=== PATIENT | female | born 1970 | race Caucasian/White ===

== ENCOUNTER → 2017-05-02 | Outpatient (CLI) | payer OTHER ==
[2017-05-02 07:26] LABS: AUTOMATED NEUTROPHIL # 4.5 TH/MM3 (1.8-7.7); BASOPHIL % 0.2 % (0.0-2.0); EOSINOPHIL # 0.3 TH/MM3 (0-0.4); EOSINOPHIL % 4.2 % (0.0-4.0); HEMATOCRIT 39.1 % (35.0-46.0); HEMO FLAGS DIFF FINAL; LYMPH % 18.9 % (9.0-44.0); LYMPHOCYTE # 1.2 TH/MM3 (1.0-4.8); MEAN CELL VOLUME 84.5 FL (80.0-100.0); MEAN CORPUSCULAR HEMOGLOBIN 29.6 PG (27.0-34.0); MONO % 6.3 % (0.0-8.0); NEUT % 70.4 % (16.0-70.0); PLATELET COUNT 277 TH/MM3 (150-450); RED BLOOD COUNT 4.62 MIL/MM3 (4.00-5.30); RED CELL DISTRIBUTION WIDTH 13.8 % (11.6-17.2); WHITE BLOOD COUNT 6.4 TH/MM3 (4.0-11.0)
[2017-05-02 07:29] LABS: BACTERIA, URINE RARE /hpf; BLOOD, URINE NEG (NEG); GLUCOSE,URINE NEG (NEG); KETONE, URINE NEG (NEG); MUCUS URINE FEW /lpf (OCC); NITRITE,URINE NEG (NEG); SQUAMOUS EPITHELIAL CELL URINE 2 /hpf (0-5); URINE COLOR YELLOW (YELLW/STRAW)
[2017-05-02 07:53] LABS: ANION GAP 6 MEQ/L (5-15); AST (GOT) 13 U/L (15-37); BICARBONATE 23.7 MEQ/L (21.0-32.0); BLOOD UREA NITROGEN 14 MG/DL (7-18); CHLORIDE 108 MEQ/L (98-107); GLOMERULAR FILTRATION RATE 74 ML/MIN (>89); GLUCOSE,FASTING 98 MG/DL (74-99); POTASSIUM 4.1 MEQ/L (3.5-5.1); SODIUM (NA) 138 MEQ/L (136-145)
[2017-05-02 07:54] LABS: ALT (GPT) 27 U/L (10-53)
[2017-05-02 08:04] LABS: ALKALINE PHOSPHATASE 82 U/L (45-117); THYROXINE (T4) 9.1 MCG/DL (4.8-13.9); TOTAL BILIRUBIN ADULT 0.4 MG/DL (0.2-1.0)
== END ==
LOC: CLAB 07:01
PROVIDERS: ATTEND Family Medicine
DX: R53.83 Other fatigue (principal); G43.909 Migraine, unspecified, not intractable, without status migrainosus; Z13.29 Encounter for screening for other suspected endocrine disorder; Z13.220 Encounter for screening for lipoid disorders
CPT/HCPCS: 36415; 80053; 81001; 84436; 84443; 85025

== ENCOUNTER → 2017-07-09 | Outpatient (CLI) | payer OTHER | LOC: CLAB 07:10 | PROVIDERS: ATTEND Family Medicine | DX: E04.9 Nontoxic goiter, unspecified (principal) | CPT/HCPCS: 36415; 84436; 84443 ==

== ENCOUNTER → 2017-11-19 | Outpatient (CLI) | payer OTHER ==
[~2017-11-19] MED LIST: IMIT100T PO; LEVO25TA4 PO; PROP10TA6 PO
[2017-11-19 12:04] LABS: AUTOMATED NEUTROPHIL # 5.5 TH/MM3 (1.8-7.7); BASOPHIL % 0.2 % (0.0-2.0); EOSINOPHIL # 0.2 TH/MM3 (0-0.4); EOSINOPHIL % 2.9 % (0.0-4.0); HEMATOCRIT 38.8 % (35.0-46.0); HEMOGLOBIN 13.1 GM/DL (11.6-15.3); LYMPH % 23.2 % (9.0-44.0); LYMPHOCYTE # 1.9 TH/MM3 (1.0-4.8); MEAN CELL VOLUME 85.7 FL (80.0-100.0); MEAN CORPUSCULAR HGB CONC 33.8 % (32.0-36.0); MEAN PLATELET VOLUME 7.6 FL (7.0-11.0); MONO % 6.8 % (0.0-8.0); MONOCYTE # 0.6 TH/MM3 (0-0.9); NEUT % 66.9 % (16.0-70.0); PLATELET COUNT 274 TH/MM3 (150-450); RED BLOOD COUNT 4.52 MIL/MM3 (4.00-5.30); RED CELL DISTRIBUTION WIDTH 14.1 % (11.6-17.2); WHITE BLOOD COUNT 8.2 TH/MM3 (4.0-11.0)
[2017-11-19 12:05] LABS: BILIRUBIN, URINE NEG (NEG); BLOOD, URINE NEG (NEG); GLUCOSE,URINE NEG (NEG); KETONE, URINE NEG (NEG); MUCUS URINE FEW /lpf (OCC); NITRITE,URINE NEG (NEG); PH, URINE 6.5 (5.0-8.5); SQUAMOUS EPITHELIAL CELL URINE 5 /hpf (0-5); URINE COLOR YELLOW (YELLW/STRAW); URINE LEUKOCYTE ESTERASE NEG (NEG)
[2017-11-19 12:33] LABS: ALBUMIN 3.4 GM/DL (3.4-5.0); AST (GOT) 13 U/L (15-37); BICARBONATE 26.2 MEQ/L (21.0-32.0); BLOOD UREA NITROGEN 15 MG/DL (7-18); CALCIUM 8.9 MG/DL (8.5-10.1); CHLORIDE 105 MEQ/L (98-107); CREATININE 0.75 MG/DL (0.50-1.00); GLOMERULAR FILTRATION RATE 82 ML/MIN (>89); GLUCOSE,FASTING 67 MG/DL (74-99); SODIUM (NA) 139 MEQ/L (136-145)
[2017-11-19 12:35] LABS: ALT (GPT) 25 U/L (10-53)
[2017-11-19 12:37] LABS: ALKALINE PHOSPHATASE 79 U/L (45-117); TOTAL BILIRUBIN ADULT 0.2 MG/DL (0.2-1.0); TOTAL PROTEIN 7.1 GM/DL (6.4-8.2)
== END ==
LOC: CPRE 10:03
PROVIDERS: ATTEND Obstetrics & Gynecology Gynecology
DX: Z01.812 Encounter for preprocedural laboratory examination (principal); N39.3 Stress incontinence (female) (male)
CPT/HCPCS: 36415; 80053; 81001; 85025

== ENCOUNTER → 2017-12-04 | Day surgery (SDC) | payer OTHER ==
--- NOTE | 2017-11-19 10:36 | MH ---
cc: Wali Sorensen MD DATE OF ADMISSION: 12/04/2017 DATE OF : 1970 DATE OF ADMISSION: 12/04/2017 REASON FOR ADMISSION: Removal of mini-sling and placement of transobturator sling. HISTORY OF PRESENT ILLNESS: The patient is a 47-year-old white female, 3, para 2, who had issues with stress urinary incontinence. She had a mini-sling placed in 2014. She has had continued leaking despite the sling. She has had urodynamic testing that shows a leak at relatively full capacity, but no postvoid residual and no detrusor instability. The patient was given the option for conservative management, but she opts for removal of prior sling and placement of transobturator tape. PAST MEDICAL HISTORY: Notable for migraines, hypothyroidism. Otherwise negative for heart, lung, liver disease, hypertension, diabetes or stroke. PAST SURGICAL HISTORY: Mini-sling in 2014, retropharyngeal abscess incision and drainage, hysterectomy in 2006. OB HISTORY: Two vaginal deliveries. SOCIAL HISTORY: Nurse. No alcohol, tobacco, caffeine. . Good social support. 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 FAMILY HISTORY: Noncontributory. ALLERGIES: NONE. MEDICATIONS: 1. Propranolol 10 mg b.i.d. 2. Synthroid 25 mcg every day. 3. Imitrex 100 mg p.r.n. REVIEW OF SYSTEMS: As above. No chest pain, orthopnea, PND. No nausea, vomiting, or chills. No vaginal bleeding or discharge. Issues with stress urinary incontinence, as noted above. PHYSICAL EXAMINATION: VITAL SIGNS: She is afebrile. Vital signs are stable. Blood pressure is 120/70, height 5 feet 3 inches, weight 165, BMI is 29. GENERAL: Alert and oriented, in no acute distress. No sign of cognitive dysfunction or depression. HEENT: Within normal limits. NECK: Supple. No JVD. CHEST: Clear. HEART: Regular rate and rhythm. ABDOMEN: Soft, nontender. No hepatosplenomegaly. No CVA tenderness. PELVIC EXAM: In the office we note POP-Q score Aa is -2, Ap is -2, point C is -8, genital hiatus is 6, perineal body is 4. Sling is not palpable. There is no significant postvoid residual. There is hypermobility of the urethra with a 30-degree deviation from horizontal with Q-tip test. Further exam under anesthesia. EXTREMITIES: Normal. SKIN: Without rashes. NEUROLOGIC: Nonfocal. No DVT signs. ASSESSMENT: The patient with stress urinary incontinence despite prior surgical attempt at sling placement. PLAN: The patient and I have discussed the options for management and treatment. She is aware of the risks, benefits and alternatives of the planned procedure including damage to surrounding organs, bleeding and infection. She is aware of the possibility of failure of repair to reduce incontinence, also the possibility of damage to urethra, fistula formation, pain with intercourse. The patient has made informed choice to proceed. We anticipated outpatient procedure. We will use DVT prophylaxis with sequential compression device and antibiotic prophylaxis with Ancef 2 grams. MD EVER Chung/ALFRED , 09:58 AM , 10:36 AM
[~2017-12-04] VITALS: Ht 160 cm; Wt 80.0 kg
[~2017-12-04] MED LIST changes: +ACETAMINOPHEN 1000 MG/100 ML 100 ML IV ONE; +CHLORHEXIDINE GLUCONATE 2 % 1 PACK (2 CLOTHS) TOPICAL PRN; +DEXAMETHASONE SOD PHOS 4 MG/ML VIAL IV ONE; +DO NOT ADM ANY ANTICOAGULANT DRUGS PRN; +ESTROGENS CONJUGATED VAG CREA 15 APPL/30 GM TUBE ONE; +FLUORESCEIN SOD 10% SOLN 500 MG/5 ML AMP ONE; +KETOROLAC TROMETHAMINE 30 MG/ML (IVP) VIAL IV PUSH ONE; +KETOROLAC TROMETHAMINE 60 MG/2 ML (IM) VIAL IM PRN; +LACTATED RINGER'S 1000 ML IV PRN; +LIDOCAINE 1%/EPINEPHrine 1:100,000 SOLN 30 ML VIAL ONE; +LIDOCAINE HCL 1% PF 5 ML SYRINGE OTHER ONE; +METHYLENE BLUE 10 MG/ML VIAL OTHER ONE; +METOPROLOL TARTRATE 25 MG TAB PO PRN; +MIDAZOLAM HCL 2 MG/2 ML VIAL ONE; +ONDANSETRON HCL 4 MG/2 ML VIAL IV ONE; +ONDANSETRON HCL 4 MG/2 ML VIAL ONE; +ONDANSETRON ODT 4 MG TAB ONE; +ONDANSETRON ODT 4 MG TAB PO PRN; +ONDANSETRON ODT 4 MG TAB SL ONE; +PHENYLEPH/NS 1000 MCG/10 ML SYR IV ONE; +POVIDONE IODINE 5% (ANTISEPSIS KIT) 4 APPLICATIONS EACH NARE PRN; +PROPOFOL 200 MG/20 ML AMP IV ONE; +SODIUM CHLORID 0.9% 500 ML IV PRN; +ceFAZolin 2 GM/DEX PREMIX 50 ML IV SCH; +ePHEDrine/NS 25 MG/5 ML SYRINGE IV ONE; +traMADol HCL 50 MG TAB PO PRN
[2017-12-04 10:40] VITALS: BP 134/89; PULSE 81; RESP 18; TEMP 97.9; O2SAT 100
--- NOTE | 2017-12-04 12:02 | MP ---
cc: Wali Sorensen MD DATE OF OPERATION: 12/04/2017 PREOPERATIVE DIAGNOSES: 1. Complication with previously placed midurethral sling (Code T83.711A). 2. Stress urinary incontinence (Code N39.3.). POSTOPERATIVE DIAGNOSES: 1. Complication with previously placed midurethral sling (Code T83.711A). 2. Stress urinary incontinence (Code N39.3.). 3. Midline cystocele (Code N81.11). PROCEDURE: 1. Transobturator sling midurethral Marycarmen Desara polypropylene sling (Code 70406). 2. Removal of polypropylene sling (Code 44883). 3. Anterior repair (Code 37760). 4. Diagnostic cystoscopy (Code 13476). SURGEON: MD Edu ANESTHESIA: General endotracheal. BLOOD LOSS: 25 mL URINE OUTPUT: 100 mL FIFTH HAND: [place] staff x2. FLUIDS: 1000 cc crystalloid. FINDINGS: External genitalia normal. POPQ score Aa is 0, Ap is +1 point C is -8, total vaginal length is 8, genital hiatus is 6, perineal body is 4. Cystoscopy prior to procedure shows normal trigone, no abnormality of the urethra. Following the repair Aa is -3, Ap is +1, point C is -8, total vaginal length is 8, genital hiatus is 6, perineal body is 4. Rectal exam was normal following repair. Cystoscopy shows normal trigone, good coaptation of the urethra. Ureteral orifices patent x2. Dome and base of bladder normal. SPECIMENS REMOVED: Polypropylene sling for gross inspection only. COMPLICATIONS: None. DISPOSITION: Recovery room stable. COUNTS: Needle and sponge counts correct. DRAINS: Contreras catheter. DISPOSITION: Recovery room, stable. ANTIBIOTIC PROPHYLAXIS: Ancef 2 grams. DVT PROPHYLAXIS: Sequential compression devices. TIMEOUT PROCEDURE AND IDENTIFICATION: Per protocol. SUMMARY OF INDICATIONS FOR PROCEDURE: The patient with a prior history of mid-urethral sling placement which was unsuccessful in treating her incontinence. She had urodynamic testing that showed normal pressures, no sign of retention, no detrusor instability. Decision was made to remove prior sling and place a new polypropylene sling from a transobturator approach. PROCEDURE: The patient was taken to the operating theater, identified, prepped and draped in fashion appropriate for the planned procedure. Legs were placed in dorsal lithotomy position. Careful attention was paid to placement of the legs in the stirrups to avoid undue stress to sensitive neurovascular structures. The bladder was drained, then backfilled with methylene blue solution. The sling was palpable. There was no sign of erosion. We infiltrated with epinephrine/lidocaine solution, made a midline incision with sharp scissors. There was significant scarring but we were able to free up the sling from the urethra without damage to the urethra. No spill of methylene blue. The sling was excised. Further dissection was used to mobilize the urethra. We then placed a C-hook from a lateral to medial position at the obturator foramen. A polypropylene sling was placed in good position in the mid-urethra without complication. Anterior repair was performed in standard fashion with layers of absorbable suture without complication. Cystoscopy was performed with a 17-Wolof bridge and a 70-degree scope, the above findings noted. The procedure was concluded. Hemostasis of the anterior vaginal wall was good. She had significant posterior compartment defect, but she has no symptomatology and we did not repair this at this time. MD EVER Chung/ALFRED , 11:33 AM , 12:01 PM
== END | disposition home or self-care (01) ==
LOC: HSDC 05:55
PROVIDERS: ATTEND Obstetrics & Gynecology Gynecology
DX: T83.712A Erosion of implanted urethral mesh to surrounding organ or tissue, initial encounter (principal); N39.3 Stress incontinence (female) (male); N81.11 Cystocele, midline; G43.909 Migraine, unspecified, not intractable, without status migrainosus; E03.9 Hypothyroidism, unspecified
CPT/HCPCS: 00860; 57240; 57288; 88304; C1771; J0131; J0690; J1100; J1885; J2250; J2370; J2405; J3010; J7120; 88305